=== PATIENT | female | born 1990 | race Caucasian/White ===

== ENCOUNTER 2018-06-28 10:26 | Emergency (ER) | END 2018-06-28 14:01 | disposition home or self-care (01) ==

== ENCOUNTER 2018-08-20 13:50 | Emergency (ER) | payer OTHER ==
[~2018-08-20] VITALS: Wt 56.2 kg
[~2018-08-20 13:50] MED LIST: ALBU8.5H5 INH; AMOX500C2 PO; BEN25 PO; CYCL10TA7 PO; DIPH1POW PO; GUAI118L94 PO; IBUP-1542 PO; NAPR-985 PO; NITR-58 PO; ONDA4TAB8 PO; PRED20TA PO
[2018-08-20] MEDS ORDERED: CETI10CA PO (15:32)
[2018-08-20] MEDS ORDERED: D-ME473S2 PO (15:32)
[2018-08-20] MEDS ORDERED: ACET500C5 PO (15:32)
--- NOTE | 2018-08-20 15:36 | ERD ---
ER Documentation Chief Complaint Chief Complaint bib self, cc: cough and sore throat x 1 day (HCANO JUNIOR PA-C) HPI 88-year-old female patient with a past medical history of psoriasis presents to ED complaining of cough, sore throat, rhinorrhea noted 2 days ago, started to have body aches earlier today. Reports that she is been taking TheraFlu with slight relief of her symptoms. Denies any fever, chills, nausea, vomiting, d iarrhea, neck stiffness, chest pain, shortness of breath, abdominal pain. (CHANO JUNIOR PA-C) Age correction: The patient is 28-year-old female. (BROOKS WALKER MD) ROS All systems reviewed and are negative except as per history of present illness. (CHANO JUNIOR PA-C) Medications Home Meds Active Scripts Cetirizine Hcl* (Zyrtec*) 10 Mg Capsule, 10 MG PO DAILY, #10 TAB.CHEW Prov:CHANO JUNIOR PA-C 08/20/18 Acetaminophen* (Tylophen*) 500 Mg Capsule, 1 CAP PO Q6H PRN for PAIN AND OR ELEVATED TEMP, #20 CAP Prov:CHANO JUNIOR PA-C 08/20/18 Dextromethorphan Hb-Promethazine Hcl* (Promethazine DM* Syrup) 473 Ml Syrup, 5 ML PO Q6 PRN for COUGH, #120 ML Prov:CHANO JUNIOR PA-C 08/20/18 Cyclobenzaprine Hcl* (Cyclobenzaprine Hcl*) 10 Mg Tablet, 10 MG PO QHS, #7 TAB Prov:DAY CALDERON PA-C 06/28/18 Naproxen* (Naprosyn*) 500 Mg Tablet, 500 MG PO BID PRN for PAIN AND/OR INFLAMMATION, #30 TAB Prov:DAY CALDERON PA-C 06/28/18 Ondansetron Hcl* (Zofran*) 4 Mg Tablet, 4 MG PO Q6H for NAUSEA AND/OR VOMITING, #30 TAB Prov:DAY CALDERON PA-C 06/28/18 Nitrofurantoin Monohyd Macrocr* (Macrobid*) 100 Mg Capsr, 100 MG PO BID for 7 Days, CAP Prov:PROUSE,DAY M. PA-C 06/28/18 Diphenhydramine Hcl* (Benadryl*) 25 Mg Cap, 25 MG PO Q6H PRN for ITCHING, #16 CAP Prov:STARR THORNTON MD 09/03/15 Prednisone* (Prednisone*) 20 Mg Tab, 40 MG PO DAILY for 4 Days, TAB Prov:STARR THORNTON MD 09/03/15 Ibuprofen* (Motrin*) 600 Mg Tab, 600 MG PO Q6H PRN for PAIN AND OR ELEVATED TEMP , #30 Prov:ROSELIA BROWN NP 07/16/15 Guaifenesin-Codeine Phosphate* (Guaifenesin* with Codeine Liq) 120 Ml Liquid, 5 ML PO Q4H PRN for COUGH, #60 ML Prov:ROSELIA BROWN NP 07/16/15 Amoxicillin* (Amoxicillin*) 500 Mg Cap, 500 MG PO TID for 10 Days, CAP Prov:ROSELIA BROWN NP 07/16/15 Albuterol Sulfate* (Albuterol Sulfate* HFA) 8.5 Gm Hfa.aer.ad, 1-2 PUFF INH Q4 PRN for SHORTNESS OF BREATH, #1 EA Prov:ROSELIA BROWN NP 07/16/15 Reported Medications Diphenhydra/Phenyleph/Acetamin (Theraflu Severe Cold & Cough) Unknown Strength Powd.pack, PO 07/16/15 Allergies Allergies: Coded Allergies: No Known Drug Allergies (Verified Allergy, Mild, 08/20/18) PMhx/Soc History of Surgery: No Anesthesia Reaction: No Hx Neurological Disorder: No Hx Respiratory Disorders: No Hx Cardiac Disorders: No Hx Psychiatric Problems: No Hx Miscellaneous Medical Probl: No Hx Alcohol Use: Yes (SOMETIMES) Hx Substance Use: No Hx Tobacco Use: No (CHANO JUNIOR PA-C) FmHx Family History: No diabetes, No coronary disease (CHANO JUNIOR PA-C) Physical Exam Vitals Vital Signs Date Temp Pulse Resp B/P (MAP) Pulse Ox O2 O2 Flow FiO2 Time Delivery Rate 08/20/18 98.1 80 19 117/75 100 Room Air 16:10 (89) 08/20/18 97.5 96 19 120/81 100 13:53 (94) (BROOKS WALKER MD) Physical Exam Const: Gal-ghk-remlvgnzo, well-nourished. In no acute distress. Head: Atraumatic, normocephalic Eyes: Normal Conjunctiva without injection. No purulent discharge. PERRL. EOMI ENT: Normal external ear. Ear canal without erythema. Tympanic membrane pearly vila without effusion or bulging. Nasal canal clear with normal turbinates. Moist oropharynx without tonsillar exudates. Non-erythematous pharynx. Uvula midline. No drooling. No trismus. Neck: Full range of motion. No meningismus. No cervical lymphadenopathy. Resp: Clear to auscultation bilaterally. No wheezing, rhonchi, rales, or crackles. No accessory muscle use. No retractions. Cardio: Regular rate and rhythm. No murmurs, rubs or gallops. Abd: Soft, non tender, non distended. Normal bowel sounds. No palpable masses. No rebound tenderness. No guarding. Skin: No petechiae or rashes Back: No midline tenderness. No CVA tenderness. Ext: No cyanosis, or edema. Neur: Awake and alert. Psych: Normal Mood and Affect (CHANO JUNIOR PA-C) Results 24 hrs Laboratory Tests Test 08/20/18 15:22 POC Beta HCG, Qualitative NEGATIVE (BROOKS WALKER MD) Procedures/MDM 28-year-old female patient with no significant past medical history presents to ED complaining of cough, sore throat, rhinorrhea body aches. Patient is afebrile and nontoxic-appearing. Urine negative. Patient has flulike symptoms, likely viral etiology. Patient's physical exam include lungs which were clear to auscultation and a normal pulse oximetry. There is a low suspicion for pneumonia, pneumothorax, mononucleosis, pulmonary embolism, epiglottitis, otitis media, otitis externa, viral/strep pharyngitis, sinusitis, myocarditis, pericarditis, endocarditis, peritonsillar abscess, mastoiditis, retropharyngeal abscess, meningitis, sepsis, acute abdomen or other emergent conditions. Fluids, rest, and symptomatic treatment are recommended for the management of patient's symptoms. Diagnosis: Cough, Rhinorrhea, Body aches Discharge medications: Zyrtec, Promethazine DM, Tylenol Patient was instructed to return to the ED for any new or worsening symptoms. They should otherwise follow up with the primary care provider within 2-3 days. The patient's questions were answered at the time of discharge. Patient understood and agreed with discharge management. Disclaimer: Inadvertent spelling and grammatical errors are likely due to EHR/dictation software use and do not reflect on the overall quality of patient care. Also, please note that the electronic time recorded on this note does not necessarily reflect the actual time of the patient encounter. (CHANO JUNIOR PA-C) Departure Diagnosis: Primary Impression: Cough Additional Impressions: Rhinorrhea Body aches Condition: Stable Patient Instructions: Viral Syndrome (Adult) Referrals: [facility] YOU HAVE RECEIVED A MEDICAL SCREENING EXAM AND THE RESULTS INDICATE THAT YOU DO NOT HAVE A CONDITION THAT REQUIRES URGENT TREATMENT IN THE EMERGENCY DEPARTMENT. FURTHER EVALUATION AND TREATMENT OF YOUR CONDITION CAN WAIT UNTIL YOU ARE SEEN IN YOUR DOCTORS OFFICE WITHIN THE NEXT 1-2 DAYS. IT IS YOUR RESPONSIBILITY TO MAKE AN APPOINTMENT FOR FOLOW-UP CARE. IF YOU HAVE A PRIMARY DOCTOR --you should call your primary doctor and schedule an appointment IF YOU DO NOT HAVE A PRIMARY DOCTOR YOU CAN CALL OUR PHYSICIAN REFERRAL HOTLINE AT IF YOU CAN NOT AFFORD TO SEE A PHYSICIAN YOU CAN CHOSE FROM THE FOLLOWING [facility] [address] [facility] [address] [facility] [employer] [facility] [address] [facility] [address] [facility] [address] [facility]. [facility]. [address] [facility]. [facility] YOU HAVE RECEIVED A MEDICAL SCREENING EXAM AND THE RESULTS INDICATE THAT YOU DO NOT HAVE A CONDITION THAT REQUIRES URGENT TREATMENT IN THE EMERGENCY DEPARTMENT. FURTHER EVALUATION AND TREATMENT OF YOUR CONDITION CAN WAIT UNTIL YOU ARE SEEN IN YOUR DOCTORS OFFICE WITHIN THE NEXT 1-2 DAYS. IT IS YOUR RESPONSIBILITY TO MAKE AN APPOINTMENT FOR FOLOW-UP CARE. IF YOU HAVE A PRIMARY DOCTOR --you should call your primary doctor and schedule and appointment IF YOU DO NOT HAVE A PRIMARY DOCTOR YOU CAN CALL OUR PHYSICIAN REFERRAL HOTLINE AT . IF YOU CAN NOT AFFORD TO SEE A PHYSICIAN YOU CAN CHOSE FROM THE FOLLOWING [facility] INSTITUTIONS: [facility] [address] [place] [address] [facility] [address] [place] [address] [facility] [address] [place] [address] [facility] Additional Instructions: Call your primary care doctor TOMORROW for an appointment during the next 2-3 days.See the doctor sooner or return here if your condition worsens before your appointment time. CHANO JUNIOR PA-C Aug 20, 2018 15:35 BROOKS WALKER MD Aug 20, 2018 17:39
[2018-08-20 16:10] VITALS: BP 117/75; PULSE 80; RESP 19
== END 2018-08-20 16:04 | disposition home or self-care (01) ==
LOC: FTE 13:50
DX: J34.89 Other specified disorders of nose and nasal sinuses (principal)
CPT/HCPCS: 81025; 99283

== ENCOUNTER 2019-02-11 02:45 | Emergency (ER) | payer OTHER ==
[~2019-02-11] VITALS: Ht 165.1 cm; Wt 58.6 kg
[~2019-02-11 02:45] MED LIST changes: +ACET500C5 PO; +CETI10CA PO; +D-ME473S2 PO
[2019-02-11 02:47] VITALS: BP 116/69; PULSE 88; RESP 20; Ht 165.1 cm; Wt 58.6 kg
--- NOTE | 2019-02-11 03:23 | ERD ---
ER Documentation Chief Complaint Chief Complaint pt reports ST since yesterday HPI This is a 28-year-old female presents here to emerge department with complaints of sore throat since yesterday. Also complains of coughing for about 2 days. Stated that she developed a rash yesterday. LMP: January 24, 2019. G4, P3 M1. Denies headache, head injury, loss of consciousness, dizziness, neck pain, neck stiffness, throat pain, difficulty swallowing, difficulty breathing lying flat, shoulder pain, chest pain, back pain, abdominal pain, nausea, vomiting, constipation, diarrhea, urinary symptoms, or possibility being , loss of bowel and bladder control, trauma, injury, falls, difficulty walking due to pain, numbness or tingling sensation, calf pain, recent travel, recent major surgery in the last 3 weeks, calf pain, recent long travel, recent exposure to any illness, recent antibiotic use in the last 3 months, fever, chills, seizures. Past medical history: Psoriasis. Surgical history: Social: Denies smoking, use of alcoholic beverages, use of illegal drugs. ROS All systems reviewed and are negative except as per history of present illness. Medications Home Meds Active Scripts Diphenhydramine Hcl* (Benadryl*) 25 Mg Cap, 25 MG PO Q6 PRN for ITCHING/RASH, #30 TAB Prov:CIARAN QUESADA 02/11/19 Benzonatate* (Tessalon Perle*) 100 Mg Capsule, 100 MG PO Q8H PRN for COUGH, #15 CAP Prov:PASILACIARAN MCKEON 02/11/19 Prednisone* (Prednisone*) 20 Mg Tab, 40 MG PO DAILY for 4 Days, TAB Prov:PASCIARAN BRAVO 02/11/19 Ibuprofen* (Motrin*) 600 Mg Tab, 600 MG PO Q6H PRN for PAIN AND OR ELEVATED TEMP, #30 TAB Prov:CIARAN QUESADA 02/11/19 Azithromycin* (Zithromax*) 250 Mg Tablet, 250 MG PO .JaePACK DIRECTED, #6 TAB TAKE 500 MG (2 TABS) THE FIRST DAY THEN 250 MG (1 TAB) DAYS 2-5 Prov:SUSHILAILACIARAN MCKEON 02/11/19 Cetirizine Hcl* (Zyrtec*) 10 Mg Capsule, 10 MG PO DAILY, #10 TAB.CHEW Prov:JUNIOR,CHANO T. PA-C 08/20/18 Acetaminophen* (Tylophen*) 500 Mg Capsule, 1 CAP PO Q6H PRN for PAIN AND OR ELEVATED TEMP, #20 CAP Prov:CHANO JUNIOR PA-C 08/20/18 Dextromethorphan Hb-Promethazine Hcl* (Promethazine DM* Syrup) 473 Ml Syrup, 5 ML PO Q6 PRN for COUGH, #120 ML Prov:CHANO JUNIOR PA-C 08/20/18 Cyclobenzaprine Hcl* (Cyclobenzaprine Hcl*) 10 Mg Tablet, 10 MG PO QHS, #7 TAB Prov:DAY CALDERON PA-C 06/28/18 Naproxen* (Naprosyn*) 500 Mg Tablet, 500 MG PO BID PRN for PAIN AND/OR INFLAMMATION, #30 TAB Prov:DAY CALDERON PA-C 06/28/18 Ondansetron Hcl* (Zofran*) 4 Mg Tablet, 4 MG PO Q6H for NAUSEA AND/OR VOMITING, #30 TAB Prov:DAY CALDERON PA-C 06/28/18 Nitrofurantoin Monohyd Macrocr* (Macrobid*) 100 Mg Capsr, 100 MG PO BID for 7 Days, CAP Prov:DAY CALDERONC 06/28/18 Diphenhydramine Hcl* (Benadryl*) 25 Mg Cap, 25 MG PO Q6H PRN for ITCHING, #16 CAP Prov:STARR THORNTON MD 09/03/15 Prednisone* (Prednisone*) 20 Mg Tab, 40 MG PO DAILY for 4 Days, TAB Prov:STARR THORNTON MD 09/03/15 Ibuprofen* (Motrin*) 600 Mg Tab, 600 MG PO Q6H PRN for PAIN AND OR ELEVATED TEMP, #30 Prov:ROSELIA BROWN NP 07/16/15 Guaifenesin-Codeine Phosphate* (Guaifenesin* with Codeine Liq) 120 Ml Liquid, 5 ML PO Q4H PRN for COUGH, #60 ML Prov:ROSELIA BROWN NP 07/16/15 Amoxicillin* (Amoxicillin*) 500 Mg Cap, 500 MG PO TID for 10 Days, CAP Prov:ROSELIA BROWN ROMELIA Benites RELIABILITY TECHNICIAN 07/16/15 Albuterol Sulfate* (Albuterol Sulfate* HFA) 8.5 Gm Hfa.aer.ad, 1-2 PUFF INH Q4 PRN for SHORTNESS OF BREATH, #1 EA Prov:ROSELIA BROWN ROMELIA Benites RELIABILITY TECHNICIAN 07/16/15 Reported Medications Diphenhydra/Phenyleph/Acetamin (Theraflu Severe Cold & Cough) Unknown Strength Powd.pack, PO 07/16/15 Allergies Allergies: Coded Allergies: No Known Drug Allergies (Verified Allergy, Mild, 08/20/18) PMhx/Soc Medical and Surgical Hx: pt denies Surgical Hx History of Surgery: No Anesthesia Reaction: No Hx Neurological Disorder: No Hx Respiratory Disorders: No Hx Cardiac Disorders: No Hx Psychiatric Problems: No Hx Miscellaneous Medical Probl: Yes (PSORIASIS) Hx Alcohol Use: Yes (SOMETIMES) Hx Substance Use: No Hx Tobacco Use: No Smoking Status: Never smoker Physical Exam Vitals Physical Exam Head: Atraumatic Eyes: Normal Conjunctiva ENT: Normal External Ears, Nose and Mouth. Bilateral ears: TMs are not erythematous. No bleeding. No discharge. No hearing loss. No mastoid tenderness. Nose: There is no frontal or maxillary sinus tenderness palpation. Throat: Uvula is in midline and nondisplaced. Tonsils are +2 bilaterally with redness and without exudates. Tolerating secretions. Patent airway. Speaks full and clear sentences. No tripoding. Neck: Full range of motion. No meningismus. No nuchal rigidity. No signs of meningeal irritation. Resp: Clear to auscultation bilaterally. No accessory muscle use in breathing. Cardio: Regular rate and rhythm, no murmurs Abd: Soft, non tender, non distended. Normal bowel sounds. Negative Sherwood sign. Skin: No petechiae or rashes. Color appears normal for ethnicity. No skin tenting. No signs of severe dehydration. Back: No midline or flank tenderness Ext: No cyanosis, or edema Neur: Awake and alert. No neurological deficits. Psych: Normal Mood and Affect Results 24 hrs Current Medications Medications Dose Sig/Lachelle Start Time Status Last (Trade) Ordered Route PRN Stop Time Admin Dose Reason Admin Prednisone 60 mg ONCE ONCE 02/11/19 DC 02/11/19 (Prednisone) PO 04:30 04:38 02/11/19 04:31 Guaifenesin 200 mg ONCE ONCE 02/11/19 DC 02/11/19 (Robitussin PO 04:30 04:38 Liquid Cup) 02/11/19 04:31 Ibuprofen 600 mg ONCE ONCE 02/11/19 DC 02/11/19 (Motrin) PO 04:30 04:38 02/11/19 04:31 Procedures/MDM Diagnostic tests: Clinical exam. Treatment: Motrin. Prednisone. Robitussin. Re-evaluation: Afebrile. Denies chest pain. Lung sounds are clear to auscultation. Stated that she feels much better this time and that she is ready to go home. Stated that she is comfortable going home. Differential diagnosis: I have low suspicion for sepsis, meningitis, mastoiditis, peritonsillar abscess, airway obstruction, pneumonia, bronchospasms, severe dehydration. Final diagnosis: Bronchitis. Pharyngitis. Prescription: Azithromycin. Motrin. Prednisone. Tessalon Perles. Benadryl. Follow-up with PCP in the next 24-48 hours. Come back here in the emergency department for any new symptoms or any worsening symptoms. All questions and concerns were answered. Patient and family members verbalized understanding and agreed with plan of care. Hemodynamically stable on discharge. Departure Diagnosis: Primary Impression: Acute bronchitis Additional Impressions: Pharyngitis Laryngitis Condition: Stable Additional Instructions: Follow-up with PCP in the next 24-48 hours. Come back here in the emergency department for any new symptoms or any worsening symptoms. CIARAN QUESADA Feb 11, 2019 03:23
[2019-02-11] MEDS ORDERED: AZIT250T PO (04:14)
[2019-02-11] MEDS ORDERED: IBUP-1542 PO (04:15)
[2019-02-11] MEDS ORDERED: BENZ-6 PO (04:15)
[2019-02-11] MEDS ORDERED: PRED20TA PO (04:15)
[2019-02-11] MEDS ORDERED: BEN25 PO (04:16)
[2019-02-11] MEDS ORDERED: GUAIFENESIN 20 MG/ML 5ML CUP PO ONE (04:30)
[2019-02-11] MEDS ORDERED: predniSONE 20 MG TAB PO ONE (04:30)
[2019-02-11] MEDS ORDERED: IBUPROFEN 600 MG TAB PO ONE (04:30)
== END 2019-02-11 04:49 | disposition home or self-care (01) ==
LOC: FTE 02:45
DX: J20.9 Acute bronchitis, unspecified (principal); J04.0 Acute laryngitis
CPT/HCPCS: J7512; Z7502; Z7610; 99283